=== PATIENT | male | born 1965 | race Hispanic/Latino ===

== ENCOUNTER 2017-07-22 18:24 | Emergency (ER) | payer SELFPAY | END 2017-07-22 18:40 | disposition home or self-care (01) | LOC: EDH 18:24 | DX: M79.671 Pain in right foot (principal); I10 Essential (primary) hypertension ==

== ENCOUNTER 2017-09-21 19:16 | Emergency (ER) | payer SELFPAY ==
[2017-09-21 19:56] LABS: APPEARANCE,URINE Clear (CLEAR); BILIRUBIN,URINE Negative (NEGATIVE); COLOR,URINE Yellow (YELLOW); GLUCOSE, URINE (UA) Negative (NEGATIVE); KETONES,URINE Negative (NEGATIVE); LEUKOCYTE ESTERASE ,URINE Moderate (NEGATIVE); NITRATE,URINE Negative (NEGATIVE); OCCULT BLOOD,URINE Negative (NEGATIVE); PROTEIN,URINE Negative (NEGATIVE)
[2017-09-21 19:59] LABS: BASOPHILS % (AUTO) 0.6 % (0.0-5.0); EOSINOPHILS % (AUTO) 1.8 % (0.0-8.0); HEMATOCRIT 52.8 % (42-54); LYMPHOCYTES % (AUTO) 23.6 % (21.0-51.0); MEAN CORPUSCULAR HEMOGLOBIN 31.8 pg (27.0-33.0); MEAN CORPUSCULAR HGB CONC 35.3 g/dL (32.0-36.0); MEAN CORPUSCULAR VOLUME 90.1 fL (79-99); MONOCYTES % (AUTO) 7.5 % (3.0-13.0); NEUTROPHILS % (AUTO) 66.5 % (40.0-77.0); PLATELET COUNT (AUTO) 163 K/uL (130-400); RED BLOOD CELL COUNT(AUTO) 5.86 MIL/uL (4.50-6.20); RED CELL DISTRIBUTION WIDTH 13.8 % (11.0-15.5)
[2017-09-21 20:03] LABS: AMPHET/METH SCREEN,URINE NEGATIVE (NEGATIVE); BARBITURATE SCREEN, URINE NEGATIVE (NEGATIVE); BENZODIAZEPINES SCREEN,URINE NEGATIVE (NEGATIVE); CANNABINOID SCREEN,URINE NEGATIVE (NEGATIVE); COCAINE SCREEN,URINE NEGATIVE (NEGATIVE); OPIATE SCREEN,URINE NEGATIVE (NEGATIVE); PHENCYCLIDINE SCREEN,URINE NEGATIVE (NEGATIVE)
[2017-09-21 20:07] LABS: CARBON DIOXIDE 31 mmol/L (21-32); CHLORIDE 100 mmol/L (101-111); CREATININE 0.8 mg/dL (0.5-1.5); GLOMERULAR FILTR. RATE CALC 108 mL/min (>60); GLUCOSE,RANDOM 101 mg/dL (70-105); POTASSIUM 3.7 mmol/L (3.5-5.1); SODIUM SERUM 138 mmol/L (136-145); UREA NITROGEN, BLOOD 7 mg/dL (7-18)
[2017-09-21 20:11] LABS: SALICYLATE 7.7 mg/dL (2.8-20.0)
[2017-09-21 20:12] LABS: ACETAMINOPHEN < 1 mcg/mL (10-29); ALCOHOL, BLOOD < 3 mg/dL (0-10)
[2017-09-21 20:20] LABS: BACTERIA,URINE Rare /HPF (None Seen); RBC,URINE 0-1 /HPF (0-1); SQUAMOUS EPITHELIAL CELL,UR Rare /LPF (0-2)
== END 2017-09-21 23:31 | disposition home or self-care (01) ==
LOC: EDH 19:16
DX: F32.9 Major depressive disorder, single episode, unspecified (principal); F41.9 Anxiety disorder, unspecified; I10 Essential (primary) hypertension; F20.9 Schizophrenia, unspecified
CPT/HCPCS: 36415; 80048; 80305; 81001; 85025; 99284; G0480 ×2; G0481

== ENCOUNTER 2018-06-25 09:31 | Inpatient (IN) | payer OTHER ==
[~2018-06-25] VITALS: Ht 177.8 cm; Wt 142.2 kg
[2018-06-25] MEDS ORDERED: ONDANSETRON HCL 4 MG/2 ML VIAL ONE ×2 (09:47→13:16)
[2018-06-25] MEDS ORDERED: SODIUM CHLORIDE 0.9% 500ML 500 ML IV ONE (09:48)
[2018-06-25] MEDS ORDERED: MORPHINE SULFATE 4 MG/1ML SYG ONE (09:48)
[2018-06-25] MEDS ORDERED: MORPHINE SULFATE 2 MG/ML 1ML SYG ONE (09:48)
[2018-06-25 09:55] LABS: BASOPHILS % (AUTO) 0.4 % (0.0-5.0); HEMATOCRIT 51.1 % (42-54); LYMPHOCYTES % (AUTO) 2.5 % (21.0-51.0); MEAN CORPUSCULAR HEMOGLOBIN 31.5 pg (27.0-33.0); MEAN CORPUSCULAR HGB CONC 33.9 g/dL (32.0-36.0); MEAN CORPUSCULAR VOLUME 92.9 fL (79-99); NEUTROPHILS % (AUTO) 92.1 % (40.0-77.0); NUCLEATED RED BLOOD CELLS 0.2 % (0.0-0.19); PLATELET COUNT (AUTO) 146 K/uL (130-400); WHITE BLOOD COUNT (AUTO) 23.1 K/uL (4.8-10.8)
[2018-06-25 10:09] LABS: CREATININE 1.3 mg/dL (0.5-1.5); POTASSIUM 3.8 mmol/L (3.5-5.1)
[2018-06-25 10:13] LABS: ALBUMIN 3.3 g/dL (3.5-5.0); BILIRUBIN,TOTAL 0.9 mg/dL (0.2-1.0); TOTAL PROTEIN, SERUM 8.1 g/dL (6.0-8.3)
[2018-06-25] MEDS ORDERED: IOHEXOL-350 75 ML VIAL IV ONE (10:34)
[2018-06-25] MEDS ORDERED: METRONIDAZOLE 500MG/100ML BAG 100 ML ONE (11:38)
[2018-06-25] MEDS ORDERED: ZOSYN 3.375GM+NS 50ML 50 ML IV ONE (12:22)
[2018-06-25] MEDS ORDERED: SODIUM CHLORIDE 0.9% 100 ML IV ONE (12:22)
[2018-06-25] MEDS ORDERED: VANCOMYCIN 1GM+NS 250ML 0 ML IV ONE (13:06)
[2018-06-25] MEDS ORDERED: VANCOMYCIN 1GM+NS 250ML 250 ML IV SCH (13:15)
[2018-06-25] MEDS ORDERED: ZOLPIDEM TARTRATE 5 MG TAB PO PRN (13:15)
[2018-06-25] MEDS ORDERED: MORPHINE SULFATE 2 MG/ML 1ML SYG IV PRN (13:15)
[2018-06-25] MEDS ORDERED: VANCOMYCIN PROTOCOL PER PHARMACY IV PRN (13:15)
[2018-06-25] MEDS ORDERED: MIDAZOLAM HCL 1 MG/ML 2ML VIAL ONE (13:16)
[2018-06-25] MEDS ORDERED: SUCCINYLCHOLINE 200MG/10ML SYR ONE (13:16)
[2018-06-25] MEDS ORDERED: ROCURONIUM 10MG/1ML SYR 10 MG/ML ML ONE (13:16)
[2018-06-25] MEDS ORDERED: GLYCOPYRROLATE 1 MG/5 ML SYRINGE ONE (13:16)
[2018-06-25] MEDS ORDERED: LIDOCAINE PF 2% 5ML ABBOJECT ONE (13:16)
[2018-06-25] MEDS ORDERED: PROPOFOL 10 MG/ML 20ML VIAL IV ONE (13:16)
[2018-06-25] MEDS ORDERED: NEOSTIGMINE 5MG/5ML SYR IV ONE (13:16)
[2018-06-25] MEDS ORDERED: DEXAMETHASONE SOD PHOSPHATE 10MG/ML 1ML VIAL ONE (13:16)
[2018-06-25] MEDS ORDERED: FENTANYL CITRATE PF 50 MCG/1 ML 2ML VIAL ONE (13:17)
[2018-06-25 14:13] LABS: HEMOGLOBIN A1C 5.2 % (4.0-6.0)
[2018-06-25 14:17] LABS: CREATINE KINASE, TOTAL 135 U/L (21-232); MYOGLOBIN 251 ng/mL (10-92); PHOSPHORUS 4.2 mg/dL (2.5-4.9); THYROID STIMULATING HORMONE 1.41 uIU/mL (0.36-3.74); TROPONIN I < 0.04 ng/mL (0.00-0.06)
[2018-06-25] MEDS: SODIUM CHLORIDE 0.9% 1000ML 1,000 ML IV SCH ×2 (18:00→19:49)
[2018-06-25 18:10] VITALS: BP 140/73
[2018-06-25] MEDS: HEPARIN SODIUM 5000UNIT/ML 1ML VIAL SQ SCH (18:55)
[2018-06-25 19:00] VITALS: BP 130/81
[2018-06-25] MEDS ORDERED: MAGNESIUM 2GM PREMIX 50ML 50 ML IV SCH (19:45)
[2018-06-25 20:00] VITALS: BP 140/80
[2018-06-25] MEDS ORDERED: COMPOUND IV REFRIGERATED 1 EACH IVSOLN MISC PRN (20:15)
[2018-06-25 20:29] LABS: APPEARANCE,URINE Clear (CLEAR); BILIRUBIN,URINE Small (NEGATIVE); COLOR,URINE Dark Yellow (YELLOW); GLUCOSE, URINE (UA) Negative (NEGATIVE); KETONES,URINE 15 mg/dL (NEGATIVE); LEUKOCYTE ESTERASE ,URINE Trace (NEGATIVE); NITRATE,URINE Negative (NEGATIVE); OCCULT BLOOD,URINE Trace (NEGATIVE); PROTEIN,URINE POS 2+ (NEGATIVE)
[2018-06-25] MEDS ORDERED: VANCOMYCIN 1GM+NS 250ML 250 ML IV ONE (20:36)
[2018-06-25 20:44] LABS: RBC,URINE 0-1 /HPF (0-1)
[2018-06-25 20:45] LABS: BACTERIA,URINE Few /HPF (None Seen); SQUAMOUS EPITHELIAL CELL,UR Rare /HPF (0-2)
[2018-06-25 21:00] VITALS: BP 137/79
[2018-06-25] MEDS ORDERED: PANTOPRAZOLE SODIUM 40 MG TABLET.DR PO SCH (21:00)
[2018-06-25] MEDS: VANCOMYCIN 1.5 GM in SODIUM CHLORIDE 0.9% 250 ML IV SCH (21:29)
[2018-06-25 22:00] VITALS: BP 110/52
[2018-06-25] MEDS: MORPHINE SULFATE 4 MG/1ML SYG IV PRN (22:35)
[2018-06-25] MEDS: ZOSYN 3.375GM+NS 50ML 50 ML IV SCH (22:37)
[2018-06-25 23:00] VITALS: BP 124/73
[2018-06-26] VITALS (24 sets, daily range): BP systolic 102–155; BP diastolic 45–111
[2018-06-26] MEDS: MORPHINE SULFATE 4 MG/1ML SYG IV PRN (02:12)
[2018-06-26] MEDS: SODIUM CHLORIDE 0.9% 1000ML 1,000 ML IV SCH ×4 (02:12→19:49)
[2018-06-26] MEDS: HEPARIN SODIUM 5000UNIT/ML 1ML VIAL SQ SCH ×2 (03:28→19:59)
[2018-06-26 03:50] LABS: HEMATOCRIT 41.7 % (42-54); MEAN CORPUSCULAR HEMOGLOBIN 32.4 pg (27.0-33.0); MEAN CORPUSCULAR VOLUME 92.7 fL (79-99); PLATELET COUNT (AUTO) 131 K/uL (130-400); RED BLOOD CELL COUNT(AUTO) 4.49 MIL/uL (4.50-6.20); RED CELL DISTRIBUTION WIDTH 13.9 % (11.0-15.5); WHITE BLOOD COUNT (AUTO) 15.3 K/uL (4.8-10.8)
[2018-06-26 04:02] LABS: INR 0.98 (0.85-1.15); PARTIAL THROMBOPLASTIN TIME 37.3 SEC (26.3-35.5); PROTHROMBIN TIME 10.3 SEC (9.6-11.6)
[2018-06-26 05:55] LABS: ALANINE AMINOTRANSFERASE 51 U/L (12-78); ALBUMIN 2.4 g/dL (3.5-5.0); ASPARTATE AMINOTRANSFERASE 29 U/L (10-37); CARBON DIOXIDE 24 mmol/L (21-32); CHLORIDE 105 mmol/L (101-111); CREATINE KINASE, TOTAL 219 U/L (21-232); CREATININE 0.8 mg/dL (0.5-1.5); GLOMERULAR FILTR. RATE CALC 108 mL/min (>60); GLUCOSE,RANDOM 101 mg/dL (70-105); MYOGLOBIN 174 ng/mL (10-92); POTASSIUM 4.1 mmol/L (3.5-5.1); SODIUM SERUM 140 mmol/L (136-145); TOTAL PROTEIN, SERUM 6.4 g/dL (6.0-8.3); TROPONIN I < 0.04 ng/mL (0.00-0.06); UREA NITROGEN, BLOOD 12 mg/dL (7-18)
[2018-06-26] MEDS: ZOSYN 3.375GM+NS 50ML 50 ML IV SCH ×4 (06:00→20:04)
[2018-06-26] MEDS: VANCOMYCIN 1.5 GM in SODIUM CHLORIDE 0.9% 250 ML IV SCH ×2 (09:22→20:00)
[2018-06-26] MEDS: FAMOTIDINE/PF 20 MG/2 ML VIAL IV SCH ×2 (09:59→20:00)
[2018-06-26 14:15] LABS: APPEARANCE,URINE Cloudy (CLEAR); BILIRUBIN,URINE Moderate (NEGATIVE); COLOR,URINE Dark Yellow (YELLOW); GLUCOSE, URINE (UA) Negative (NEGATIVE); KETONES,URINE >=80 mg/dL (NEGATIVE); LEUKOCYTE ESTERASE ,URINE Negative (NEGATIVE); NITRATE,URINE Negative (NEGATIVE); OCCULT BLOOD,URINE Negative (NEGATIVE); PH,URINE 5.5 (5.0-8.0); PROTEIN,URINE POS 2+ (NEGATIVE)
[2018-06-26 14:31] LABS: BACTERIA,URINE Moderate /HPF (None Seen); MUCUS,URINE Few LPF (None Seen); RBC,URINE None Seen /HPF (0-1); SQUAMOUS EPITHELIAL CELL,UR 0-2 /HPF (0-2); WBC,URINE None Seen /HPF (0-1)
[2018-06-26 14:32] LABS: AMORPHOUS SEDIMENT,UR Moderate /LPF (None Seen)
[2018-06-27] VITALS (15 sets, daily range): BP systolic 113–153; BP diastolic 58–89
[2018-06-27 03:57] LABS: HEMATOCRIT 41.6 % (42-54); MEAN CORPUSCULAR HEMOGLOBIN 31.3 pg (27.0-33.0); MEAN CORPUSCULAR HGB CONC 33.7 g/dL (32.0-36.0); MEAN CORPUSCULAR VOLUME 92.7 fL (79-99); NUCLEATED RED BLOOD CELLS 0.2 % (0.0-0.19); PLATELET COUNT (AUTO) 141 K/uL (130-400); RED BLOOD CELL COUNT(AUTO) 4.48 MIL/uL (4.50-6.20); RED CELL DISTRIBUTION WIDTH 13.9 % (11.0-15.5); WHITE BLOOD COUNT (AUTO) 11.5 K/uL (4.8-10.8)
[2018-06-27 04:16] LABS: CREATININE 0.8 mg/dL (0.5-1.5)
[2018-06-27] MEDS: SODIUM CHLORIDE 0.9% 1000ML 1,000 ML IV SCH ×3 (04:19→15:50)
[2018-06-27] MEDS: HEPARIN SODIUM 5000UNIT/ML 1ML VIAL SQ SCH ×2 (04:56→17:25)
[2018-06-27] MEDS: ZOSYN 3.375GM+NS 50ML 50 ML IV SCH ×2 (05:00→20:13)
[2018-06-27] MEDS ORDERED: ZOSYN 3.375GM+NS 50ML 50 ML IV SCH ×2 (05:00)
[2018-06-27] MEDS: FAMOTIDINE/PF 20 MG/2 ML VIAL IV SCH ×2 (08:24→20:13)
[2018-06-27] MEDS: VANCOMYCIN 1.75 GM in SODIUM CHLORIDE 0.9% 250 ML IV SCH ×2 (10:47→21:44)
[2018-06-27] MEDS: MORPHINE SULFATE 4 MG/1ML SYG IV PRN (20:33)
[2018-06-28] MEDS: SODIUM CHLORIDE 0.9% 1000ML 1,000 ML IV SCH ×2 (02:44→08:48)
[2018-06-28] MEDS: MORPHINE SULFATE 4 MG/1ML SYG IV PRN ×2 (03:09→06:39)
[2018-06-28 03:57] VITALS: BP 134/60
[2018-06-28 04:04] LABS: HEMATOCRIT 40.9 % (42-54); MEAN CORPUSCULAR HEMOGLOBIN 32.9 pg (27.0-33.0); MEAN CORPUSCULAR HGB CONC 35.4 g/dL (32.0-36.0); MEAN CORPUSCULAR VOLUME 92.9 fL (79-99); PLATELET COUNT (AUTO) 167 K/uL (130-400); RED CELL DISTRIBUTION WIDTH 13.3 % (11.0-15.5); WHITE BLOOD COUNT (AUTO) 10.8 K/uL (4.8-10.8)
[2018-06-28 04:13] LABS: CREATININE 0.7 mg/dL (0.5-1.5); POTASSIUM 3.6 mmol/L (3.5-5.1)
[2018-06-28 04:24] LABS: BAND NEUTROPHILS % (MANUAL) 3 % (0-2); EOSINOPHILS % (MANUAL) 4 % (1-6); LYMPHOCYTES % (MANUAL) 8 % (22-44); MAN.DIFF COMMENT-IMPRESSION MANUAL DIFFERENTIAL; MONOCYTES % (MANUAL) 4 % (2-9); SEGMENTED NEUTROPHILS % 81 % (40-70)
[2018-06-28 04:25] LABS: PLATELET MORPHOLOGY COMMENT ADEQUATE
[2018-06-28] MEDS: ZOSYN 3.375GM+NS 50ML 50 ML IV SCH ×3 (04:49→21:16)
[2018-06-28] MEDS: HEPARIN SODIUM 5000UNIT/ML 1ML VIAL SQ SCH ×2 (04:50→18:15)
[2018-06-28 07:00] VITALS: BP 120/87
[2018-06-28] MEDS: FAMOTIDINE/PF 20 MG/2 ML VIAL IV SCH ×2 (08:49→21:16)
[2018-06-28] MEDS: VANCOMYCIN 1.75 GM in SODIUM CHLORIDE 0.9% 250 ML IV SCH ×2 (08:49→21:16)
[2018-06-28] MEDS: POTASSIUM CHLORIDE 10 MEQ in SODIUM CHLORIDE 0.9% 1000ML 1,000 ML IV SCH ×2 (09:56→18:16)
[2018-06-28] MEDS: NICOTINE 21 MG/ 24 HR PATCH TD SCH (09:59)
[2018-06-28] MEDS ORDERED: DIATR MEGLU/DIATRIZOATE SODIUM 30 ML BOTTLE ONE (10:58)
[2018-06-28 11:00] VITALS: BP 142/72
[2018-06-28 16:00] VITALS: BP 121/74
[2018-06-28 19:32] VITALS: BP 137/74
[2018-06-28] MEDS: IPRATROPIUM/ALBUTEROL SULFATE 3 ML SOLUTION IH SCH (19:39)
[2018-06-29] MEDS: POTASSIUM CHLORIDE 10 MEQ in SODIUM CHLORIDE 0.9% 1000ML 1,000 ML IV SCH ×3 (02:08→16:59)
[2018-06-29 03:34] VITALS: BP 127/66
[2018-06-29 03:43] LABS: BASOPHILS % (AUTO) 0.6 % (0.0-5.0); EOSINOPHILS % (AUTO) 2.3 % (0.0-8.0); HEMATOCRIT 38.6 % (42-54); LYMPHOCYTES % (AUTO) 13.5 % (21.0-51.0); MEAN CORPUSCULAR HEMOGLOBIN 31.8 pg (27.0-33.0); MEAN CORPUSCULAR HGB CONC 34.5 g/dL (32.0-36.0); MONOCYTES % (AUTO) 10.3 % (3.0-13.0); NEUTROPHILS % (AUTO) 73.3 % (40.0-77.0); NUCLEATED RED BLOOD CELLS 0.1 % (0.0-0.19); PLATELET COUNT (AUTO) 156 K/uL (130-400); RED BLOOD CELL COUNT(AUTO) 4.19 MIL/uL (4.50-6.20); RED CELL DISTRIBUTION WIDTH 13.9 % (11.0-15.5); WHITE BLOOD COUNT (AUTO) 9.9 K/uL (4.8-10.8)
[2018-06-29 04:03] LABS: ALBUMIN 2.3 g/dL (3.5-5.0); BILIRUBIN,DIRECT 0.1 mg/dL (0.0-0.3); BILIRUBIN,TOTAL 0.6 mg/dL (0.2-1.0); CREATININE 0.8 mg/dL (0.5-1.5); POTASSIUM 3.3 mmol/L (3.5-5.1); TOTAL PROTEIN, SERUM 6.2 g/dL (6.0-8.3)
[2018-06-29] MEDS: ZOSYN 3.375GM+NS 50ML 50 ML IV SCH ×3 (05:09→21:05)
[2018-06-29] MEDS: HEPARIN SODIUM 5000UNIT/ML 1ML VIAL SQ SCH ×2 (06:00→17:00)
[2018-06-29] MEDS: IPRATROPIUM/ALBUTEROL SULFATE 3 ML SOLUTION IH SCH ×2 (06:39→18:57)
[2018-06-29 07:00] VITALS: BP 120/59
[2018-06-29] MEDS: FAMOTIDINE/PF 20 MG/2 ML VIAL IV SCH ×2 (09:45→21:05)
[2018-06-29] MEDS: NICOTINE 21 MG/ 24 HR PATCH TD SCH (09:54)
[2018-06-29] MEDS: VANCOMYCIN 1.75 GM in SODIUM CHLORIDE 0.9% 250 ML IV SCH (09:57)
[2018-06-29 11:57] VITALS: BP 125/63
[2018-06-29 16:00] VITALS: BP 120/70
[2018-06-29 20:00] VITALS: BP 139/77
[2018-06-30] VITALS: BP 128/76
[2018-06-30] MEDS: VANCOMYCIN 1.75 GM in SODIUM CHLORIDE 0.9% 250 ML IV SCH ×3 (00:06→22:57)
[2018-06-30] MEDS: POTASSIUM CHLORIDE 10 MEQ in SODIUM CHLORIDE 0.9% 1000ML 1,000 ML IV SCH ×4 (00:06→22:57)
[2018-06-30 04:00] VITALS: BP 131/59
[2018-06-30 04:56] LABS: HEMATOCRIT 38.4 % (42-54); MEAN CORPUSCULAR HEMOGLOBIN 31.9 pg (27.0-33.0); MEAN CORPUSCULAR HGB CONC 34.6 g/dL (32.0-36.0); MEAN CORPUSCULAR VOLUME 92.2 fL (79-99); PLATELET COUNT (AUTO) 200 K/uL (130-400); RED BLOOD CELL COUNT(AUTO) 4.17 MIL/uL (4.50-6.20); RED CELL DISTRIBUTION WIDTH 13.6 % (11.0-15.5); WHITE BLOOD COUNT (AUTO) 10.6 K/uL (4.8-10.8)
[2018-06-30] MEDS: ZOSYN 3.375GM+NS 50ML 50 ML IV SCH ×3 (05:04→20:20)
[2018-06-30 05:08] LABS: CREATININE 0.8 mg/dL (0.5-1.5); POTASSIUM 3.2 mmol/L (3.5-5.1)
[2018-06-30] MEDS ORDERED: DULOXETINE HCL 30 MG CAP PO PRN (05:45)
[2018-06-30] MEDS: HEPARIN SODIUM 5000UNIT/ML 1ML VIAL SQ SCH ×2 (06:13→17:30)
[2018-06-30] MEDS: IPRATROPIUM/ALBUTEROL SULFATE 3 ML SOLUTION IH SCH ×2 (06:45→19:33)
[2018-06-30 07:47] VITALS: BP 134/74
[2018-06-30] MEDS: NICOTINE 21 MG/ 24 HR PATCH TD SCH (10:10)
[2018-06-30] MEDS: FAMOTIDINE/PF 20 MG/2 ML VIAL IV SCH ×2 (10:10→20:20)
[2018-06-30 10:56] VITALS: BP 124/79
[2018-06-30] MEDS ORDERED: ACETAMINOPHEN EXTRA STRENGTH 500 MG TABLET PO PRN (14:15)
[2018-06-30 16:17] VITALS: BP 116/79
[2018-06-30 19:59] VITALS: BP 131/83
[2018-06-30] MEDS: TERBINAFINE HCL 15 GM TUBE TP SCH (20:21)
[2018-07-01] VITALS (7 sets, daily range): BP systolic 121–149; BP diastolic 61–80
[2018-07-01] MEDS: ZOSYN 3.375GM+NS 50ML 50 ML IV SCH ×2 (04:06→11:47)
[2018-07-01 04:30] LABS: HEMATOCRIT 36.3 % (42-54); MEAN CORPUSCULAR HEMOGLOBIN 31.1 pg (27.0-33.0); MEAN CORPUSCULAR HGB CONC 33.8 g/dL (32.0-36.0); MEAN CORPUSCULAR VOLUME 91.9 fL (79-99); NUCLEATED RED BLOOD CELLS 0.1 % (0.0-0.19); PLATELET COUNT (AUTO) 185 K/uL (130-400); RED BLOOD CELL COUNT(AUTO) 3.95 MIL/uL (4.50-6.20); RED CELL DISTRIBUTION WIDTH 13.6 % (11.0-15.5); WHITE BLOOD COUNT (AUTO) 11.8 K/uL (4.8-10.8)
[2018-07-01 04:50] LABS: CREATININE 0.8 mg/dL (0.5-1.5); CRP QUANTITATIVE 113.5 mg/L (0.00-9.0); PHOSPHORUS 4.3 mg/dL (2.5-4.9); POTASSIUM 3.3 mmol/L (3.5-5.1)
[2018-07-01] MEDS: HEPARIN SODIUM 5000UNIT/ML 1ML VIAL SQ SCH ×2 (05:11→16:15)
[2018-07-01] MEDS: IPRATROPIUM/ALBUTEROL SULFATE 3 ML SOLUTION IH SCH ×2 (09:11→19:02)
[2018-07-01] MEDS: NICOTINE 21 MG/ 24 HR PATCH TD SCH (09:21)
[2018-07-01] MEDS: FAMOTIDINE/PF 20 MG/2 ML VIAL IV SCH ×2 (09:21→20:18)
[2018-07-01] MEDS: POTASSIUM CHLORIDE 10 MEQ in SODIUM CHLORIDE 0.9% 1000ML 1,000 ML IV SCH ×2 (11:46→16:16)
[2018-07-01] MEDS: TERBINAFINE HCL 15 GM TUBE TP SCH ×2 (11:47→20:19)
[2018-07-01] MEDS: VANCOMYCIN 1.75 GM in SODIUM CHLORIDE 0.9% 250 ML IV SCH (13:32)
[2018-07-01] MEDS ORDERED: POTASSIUM CHLORIDE 20 MEQ ERTAB PO ONE ×2 (20:00→22:00)
[2018-07-01] MEDS: METRONIDAZOLE 500 MG TABLET PO SCH (20:16)
[2018-07-02] MEDS: POTASSIUM CHLORIDE 10 MEQ in SODIUM CHLORIDE 0.9% 1000ML 1,000 ML IV SCH ×3 (02:12→17:41)
[2018-07-02 04:35] LABS: HEMATOCRIT 33.9 % (42-54); MEAN CORPUSCULAR HEMOGLOBIN 32.2 pg (27.0-33.0); MEAN CORPUSCULAR HGB CONC 35.1 g/dL (32.0-36.0); MEAN CORPUSCULAR VOLUME 91.6 fL (79-99); PLATELET COUNT (AUTO) 204 K/uL (130-400); RED CELL DISTRIBUTION WIDTH 13.9 % (11.0-15.5); WHITE BLOOD COUNT (AUTO) 12.3 K/uL (4.8-10.8)
[2018-07-02] MEDS: HEPARIN SODIUM 5000UNIT/ML 1ML VIAL SQ SCH ×2 (04:47→20:59)
[2018-07-02] MEDS: METRONIDAZOLE 500 MG TABLET PO SCH ×3 (04:47→20:55)
[2018-07-02 04:55] LABS: CREATININE 0.8 mg/dL (0.5-1.5); CRP QUANTITATIVE 153.4 mg/L (0.00-9.0)
[2018-07-02] MEDS: IPRATROPIUM/ALBUTEROL SULFATE 3 ML SOLUTION IH SCH ×2 (06:26→18:24)
[2018-07-02 07:52] VITALS: BP 143/76
[2018-07-02] MEDS: METOPROLOL TARTRATE 25 MG TAB PO SCH ×2 (08:57→20:55)
[2018-07-02] MEDS: FAMOTIDINE/PF 20 MG/2 ML VIAL IV SCH ×2 (08:59→20:55)
[2018-07-02] MEDS: NICOTINE 21 MG/ 24 HR PATCH TD SCH (09:01)
[2018-07-02] MEDS: TERBINAFINE HCL 15 GM TUBE TP SCH ×2 (09:01→21:00)
[2018-07-02 11:21] VITALS: BP 131/74
[2018-07-02 15:38] VITALS: BP 124/83
[2018-07-02 19:36] VITALS: BP 139/78
[2018-07-02] MEDS ORDERED: LEVOFLOXACIN 500 MG TABLET PO SCH (21:00)
[2018-07-02 23:56] VITALS: BP 130/77
[2018-07-03 03:48] VITALS: BP 137/82
[2018-07-03 04:15] LABS: BASOPHILS % (AUTO) 0.5 % (0.0-5.0); EOSINOPHILS % (AUTO) 0.7 % (0.0-8.0); HEMATOCRIT 35.8 % (42-54); LYMPHOCYTES % (AUTO) 8.2 % (21.0-51.0); MEAN CORPUSCULAR HEMOGLOBIN 31.2 pg (27.0-33.0); MEAN CORPUSCULAR HGB CONC 33.9 g/dL (32.0-36.0); MEAN CORPUSCULAR VOLUME 92.2 fL (79-99); MONOCYTES % (AUTO) 9.5 % (3.0-13.0); NEUTROPHILS % (AUTO) 81.1 % (40.0-77.0); PLATELET COUNT (AUTO) 172 K/uL (130-400); RED BLOOD CELL COUNT(AUTO) 3.88 MIL/uL (4.50-6.20); RED CELL DISTRIBUTION WIDTH 13.7 % (11.0-15.5); WHITE BLOOD COUNT (AUTO) 13.7 K/uL (4.8-10.8)
[2018-07-03 04:25] LABS: CREATININE 0.9 mg/dL (0.5-1.5); POTASSIUM 3.8 mmol/L (3.5-5.1)
[2018-07-03] MEDS: METRONIDAZOLE 500 MG TABLET PO SCH ×2 (05:17→11:50)
[2018-07-03] MEDS: POTASSIUM CHLORIDE 10 MEQ in SODIUM CHLORIDE 0.9% 1000ML 1,000 ML IV SCH ×2 (05:20→07:34)
[2018-07-03] MEDS: IPRATROPIUM/ALBUTEROL SULFATE 3 ML SOLUTION IH SCH ×2 (06:16→18:54)
[2018-07-03] MEDS: METOPROLOL TARTRATE 25 MG TAB PO SCH ×2 (07:32→19:40)
[2018-07-03] MEDS: FAMOTIDINE/PF 20 MG/2 ML VIAL IV SCH ×2 (07:32→19:40)
[2018-07-03] MEDS: HEPARIN SODIUM 5000UNIT/ML 1ML VIAL SQ SCH ×2 (07:33→19:41)
[2018-07-03] MEDS: TERBINAFINE HCL 15 GM TUBE TP SCH ×2 (07:34→21:23)
[2018-07-03 07:35] VITALS: BP 138/78
[2018-07-03] MEDS: NICOTINE 21 MG/ 24 HR PATCH TD SCH (09:39)
[2018-07-03 11:04] VITALS: BP 129/77
[2018-07-03] MEDS ORDERED: VANCOMYCIN PROTOCOL PER PHARMACY IV SCH (15:00)
[2018-07-03] MEDS: ZOSYN 3.375GM+NS 50ML 50 ML IV SCH (15:13)
[2018-07-03] MEDS: VANCOMYCIN 1.5 GM in N.S. 250 ML IV SCH ×2 (16:12→23:02)
[2018-07-03 16:13] VITALS: BP 146/71
[2018-07-03 16:30] VITALS: BP 166/83
[2018-07-03 20:00] VITALS: BP 126/72
[2018-07-04] VITALS: BP 123/76
[2018-07-04] MEDS: ZOSYN 3.375GM+NS 50ML 50 ML IV SCH ×4 (00:29→22:57)
[2018-07-04 05:41] LABS: MEAN CORPUSCULAR HEMOGLOBIN 32.6 pg (27.0-33.0); MEAN CORPUSCULAR HGB CONC 35.3 g/dL (32.0-36.0); MEAN CORPUSCULAR VOLUME 92.3 fL (79-99); PLATELET COUNT (AUTO) 209 K/uL (130-400); RED BLOOD CELL COUNT(AUTO) 3.79 MIL/uL (4.50-6.20); RED CELL DISTRIBUTION WIDTH 13.8 % (11.0-15.5)
[2018-07-04] MEDS: IPRATROPIUM/ALBUTEROL SULFATE 3 ML SOLUTION IH SCH ×2 (06:00→18:36)
[2018-07-04 07:17] LABS: CREATININE 0.9 mg/dL (0.5-1.5); MAGNESIUM 1.9 mg/dL (1.80-2.40); PHOSPHORUS 4.8 mg/dL (2.5-4.9); POTASSIUM 3.8 mmol/L (3.5-5.1)
[2018-07-04 08:00] VITALS: BP 147/74
[2018-07-04] MEDS: FAMOTIDINE/PF 20 MG/2 ML VIAL IV SCH ×2 (08:42→22:58)
[2018-07-04] MEDS: VANCOMYCIN 1.5 GM in N.S. 250 ML IV SCH (08:42)
[2018-07-04] MEDS: METOPROLOL TARTRATE 25 MG TAB PO SCH ×3 (08:44→22:56)
[2018-07-04] MEDS: NICOTINE 21 MG/ 24 HR PATCH TD SCH (08:47)
[2018-07-04] MEDS: HEPARIN SODIUM 5000UNIT/ML 1ML VIAL SQ SCH ×2 (09:03→22:57)
[2018-07-04] MEDS: TERBINAFINE HCL 15 GM TUBE TP SCH ×2 (09:04→22:57)
[2018-07-04 09:09] LABS: CRP QUANTITATIVE 183.2 mg/L (0.00-9.0)
[2018-07-04] MEDS ORDERED: SODIUM CHLORIDE 0.9% 1000ML 1,000 ML IV SCH (10:00)
[2018-07-04] MEDS ORDERED: METOPROLOL TARTRATE 1 MG/ML 5ML VIAL IV PRN (10:00)
[2018-07-04 16:00] VITALS: BP 154/84
[2018-07-04] MEDS ORDERED: MORPHINE SULFATE 2 MG/ML 1ML SYG IM PRN (18:15)
[2018-07-04 20:00] VITALS: BP 125/69
[2018-07-05] VITALS: BP 127/74
[2018-07-05] MEDS: IPRATROPIUM/ALBUTEROL SULFATE 3 ML SOLUTION IH SCH (06:00)
[2018-07-05] MEDS: ZOSYN 3.375GM+NS 50ML 50 ML IV SCH ×3 (06:41→22:42)
[2018-07-05 08:23] VITALS: BP 130/68
[2018-07-05] MEDS: FAMOTIDINE/PF 20 MG/2 ML VIAL IV SCH ×2 (08:52→21:00)
[2018-07-05] MEDS: NICOTINE 21 MG/ 24 HR PATCH TD SCH (08:52)
[2018-07-05] MEDS: METOPROLOL TARTRATE 25 MG TAB PO SCH ×2 (08:52→22:41)
[2018-07-05] MEDS: HEPARIN SODIUM 5000UNIT/ML 1ML VIAL SQ SCH ×2 (09:01→21:00)
[2018-07-05] MEDS: TERBINAFINE HCL 15 GM TUBE TP SCH ×2 (09:03→21:00)
[2018-07-05 11:42] VITALS: BP 113/63
[2018-07-05] MEDS: VANCOMYCIN 1.5 GM in N.S. 250 ML IV SCH ×2 (15:04→22:42)
[2018-07-05 15:55] LABS: BASOPHILS % (AUTO) 0.4 % (0.0-5.0); EOSINOPHILS % (AUTO) 1.9 % (0.0-8.0); HEMATOCRIT 39.3 % (42-54); LYMPHOCYTES % (AUTO) 14.4 % (21.0-51.0); MEAN CORPUSCULAR HEMOGLOBIN 30.8 pg (27.0-33.0); MEAN CORPUSCULAR HGB CONC 33.3 g/dL (32.0-36.0); MEAN CORPUSCULAR VOLUME 92.5 fL (79-99); MONOCYTES % (AUTO) 13.9 % (3.0-13.0); NEUTROPHILS % (AUTO) 69.4 % (40.0-77.0); NUCLEATED RED BLOOD CELLS 0.2 % (0.0-0.19); PLATELET COUNT (AUTO) 223 K/uL (130-400); RED BLOOD CELL COUNT(AUTO) 4.25 MIL/uL (4.50-6.20); RED CELL DISTRIBUTION WIDTH 13.7 % (11.0-15.5); WHITE BLOOD COUNT (AUTO) 9.2 K/uL (4.8-10.8)
[2018-07-05 16:18] LABS: ALBUMIN 2.3 g/dL (3.5-5.0); BILIRUBIN,TOTAL 0.5 mg/dL (0.2-1.0); POTASSIUM 3.6 mmol/L (3.5-5.1); TOTAL PROTEIN, SERUM 7.8 g/dL (6.0-8.3)
[2018-07-05 19:49] VITALS: BP 125/66
[2018-07-05 23:35] VITALS: BP 127/69
[2018-07-06 03:50] VITALS: BP 124/68
[2018-07-06 05:22] LABS: HEMATOCRIT 36.6 % (42-54); MEAN CORPUSCULAR HEMOGLOBIN 32.3 pg (27.0-33.0); MEAN CORPUSCULAR HGB CONC 34.7 g/dL (32.0-36.0); PLATELET COUNT (AUTO) 254 K/uL (130-400); RED BLOOD CELL COUNT(AUTO) 3.93 MIL/uL (4.50-6.20); RED CELL DISTRIBUTION WIDTH 13.7 % (11.0-15.5)
[2018-07-06 05:30] LABS: CREATININE 0.9 mg/dL (0.5-1.5); POTASSIUM 3.8 mmol/L (3.5-5.1)
[2018-07-06] MEDS: ZOSYN 3.375GM+NS 50ML 50 ML IV SCH ×2 (07:00→14:09)
[2018-07-06] MEDS: VANCOMYCIN 1.5 GM in N.S. 250 ML IV SCH ×2 (07:49→15:24)
[2018-07-06 08:43] VITALS: BP 125/77
[2018-07-06] MEDS: FAMOTIDINE/PF 20 MG/2 ML VIAL IV SCH (09:00)
[2018-07-06] MEDS: NICOTINE 21 MG/ 24 HR PATCH TD SCH (09:00)
[2018-07-06] MEDS: METOPROLOL TARTRATE 25 MG TAB PO SCH (09:00)
[2018-07-06] MEDS: HEPARIN SODIUM 5000UNIT/ML 1ML VIAL SQ SCH (09:00)
[2018-07-06] MEDS: TERBINAFINE HCL 15 GM TUBE TP SCH (09:00)
[2018-07-06] MEDS ORDERED: IBUP-2076 PO (10:40)
[2018-07-06] MEDS ORDERED: AMOX-429 PO (10:40)
[2018-07-06 12:20] VITALS: BP 126/73
[2018-07-06 16:50] VITALS: BP 145/77
== END 2018-07-06 18:15 | disposition home or self-care (01) | DRG 871 ==
LOC: EDH 09:31 → EDHIP 09:32 → 2BH 17:41 → 2CH 06-27 14:48 → 4CH 06-29 08:28 → 2AH 07-02 16:11 → 3CH 07-03 16:44
PROVIDERS: ADMIT Internal Medicine; ATTEND Internal Medicine
DX: A41.9 Sepsis, unspecified organism (principal); K63.1 Perforation of intestine (nontraumatic); Z68.42 Body mass index [BMI] 45.0-49.9, adult; F17.200 Nicotine dependence, unspecified, uncomplicated; R09.02 Hypoxemia; I10 Essential (primary) hypertension; B37.2 Candidiasis of skin and nail; E66.01 Morbid (severe) obesity due to excess calories; E78.5 Hyperlipidemia, unspecified; E87.6 Hypokalemia; F20.9 Schizophrenia, unspecified; F31.9 Bipolar disorder, unspecified; G47.33 Obstructive sleep apnea (adult) (pediatric); K43.9 Ventral hernia without obstruction or gangrene; K76.0 Fatty (change of) liver, not elsewhere classified; F41.9 Anxiety disorder, unspecified; R00.1 Bradycardia, unspecified; Z90.49 Acquired absence of other specified parts of digestive tract
CPT/HCPCS: 36415; 71045; 74018; 74176; 74177; 80048; 80053; 80061; 80076; 80202; 80339; 81001; 82140; 82550; 83036; 83605; 83690; 83735; 83874; 84100; 84443; 84484; 85025; 85027; 85610; 85730; 86140; 86850; 86900; 86901; 87040; 93005; 94640; 94660; 94664; 99291; A4344; J0330; J1100; J1644; J2001; J2250; J2270; J2405; J2543; J2704; J2710; J3010; J3370; J3475; J3480; J3490; J7030; J7040; Q9963; Q9967

== ENCOUNTER 2021-04-25 17:33 | Emergency (ER) | payer MEDICAID ==
[~2021-04-25] VITALS: Ht 175.3 cm; Wt 127.0 kg
[~2021-04-25 17:33] MED LIST: AMOX-429 PO; IBUP-2076 PO
[2021-04-25 18:18] LABS: APPEARANCE,URINE CLEAR (CLEAR); BILIRUBIN,URINE NEGATIVE (NEGATIVE); COLOR,URINE YELLOW (YELLOW); GLUCOSE, URINE (UA) NEGATIVE (NEGATIVE); KETONES,URINE NEGATIVE (NEGATIVE); LEUKOCYTE ESTERASE ,URINE NEGATIVE (NEGATIVE); NITRATE,URINE NEGATIVE (NEGATIVE); OCCULT BLOOD,URINE TRACE-INTACT (NEGATIVE); PROTEIN,URINE NEGATIVE (NEGATIVE); UROBILINOGEN,URINE 0.2 mg/dL (0.2-1.0)
[2021-04-25 18:23] LABS: BASOPHILS % (AUTO) 0.8 % (0.0-5.0); EOSINOPHILS % (AUTO) 1.1 % (0.0-8.0); HEMATOCRIT 53.5 % (42-54); LYMPHOCYTES % (AUTO) 19.9 % (21.0-51.0); MEAN CORPUSCULAR HEMOGLOBIN 31.2 pg (27.0-33.0); MEAN CORPUSCULAR VOLUME 89.2 fL (79-99); NEUTROPHILS % (AUTO) 70.3 % (40.0-77.0); PLATELET COUNT (AUTO) 156 K/uL (130-400); RED CELL DISTRIBUTION WIDTH 16.3 % (11.0-15.5); WHITE BLOOD COUNT (AUTO) 12.3 K/uL (4.8-10.8)
[2021-04-25 18:36] LABS: BACTERIA,URINE Rare /HPF (None Seen); SQUAMOUS EPITHELIAL CELL,UR Rare /HPF (0-2)
[2021-04-25 18:37] LABS: MUCUS,URINE Rare LPF (None Seen)
[2021-04-25 18:50] LABS: CREATININE 1.1 mg/dL (0.5-1.5); POTASSIUM 4.2 mmol/L (3.5-5.1)
[2021-04-25 19:02] LABS: ALBUMIN 3.9 g/dL (3.5-5.0); BILIRUBIN,TOTAL 0.3 mg/dL (0.2-1.0); TOTAL PROTEIN, SERUM 8.4 g/dL (6.0-8.3)
[2021-04-25] MEDS ORDERED: BISACODYL 10 MG SUPP.RECT RC STA (19:12)
[2021-04-25] MEDS ORDERED: LACTULOSE 20 GM/30 ML UDCUP PO STA ×2 (19:12→19:39)
[2021-04-25] MEDS ORDERED: POLY17PO4 PO (20:05)
[2021-04-25 20:19] VITALS: BP 140/82
== END 2021-04-25 20:15 | disposition home or self-care (01) ==
LOC: EDH 17:33
DX: R10.9 Unspecified abdominal pain (principal); K59.00 Constipation, unspecified; F20.9 Schizophrenia, unspecified; Z79.899 Other long term (current) drug therapy
CPT/HCPCS: 36415; 80053; 81001; 82150; 83690; 85025

== ENCOUNTER 2021-05-10 22:06 | Emergency (ER) | payer MEDICAID ==
[~2021-05-10] VITALS: Ht 177.8 cm; Wt 127.0 kg
[~2021-05-10 22:06] MED LIST changes: +POLY17PO4 PO
[2021-05-10 22:43] LABS: BASOPHILS % (AUTO) 0.8 % (0.0-5.0); EOSINOPHILS % (AUTO) 2.5 % (0.0-8.0); HEMATOCRIT 47.6 % (42-54); LYMPHOCYTES % (AUTO) 29.8 % (21.0-51.0); MEAN CORPUSCULAR HEMOGLOBIN 31.6 pg (27.0-33.0); MEAN CORPUSCULAR HGB CONC 34.9 g/dL (32.0-36.0); MEAN CORPUSCULAR VOLUME 90.5 fL (79-99); MONOCYTES % (AUTO) 7.3 % (3.0-13.0); NEUTROPHILS % (AUTO) 58.8 % (40.0-77.0); PLATELET COUNT (AUTO) 131 K/uL (130-400); RED BLOOD CELL COUNT(AUTO) 5.26 MIL/uL (4.50-6.20); RED CELL DISTRIBUTION WIDTH 15.2 % (11.0-15.5); WHITE BLOOD COUNT (AUTO) 10.6 K/uL (4.8-10.8)
[2021-05-10 22:46] LABS: APPEARANCE,URINE Clear (CLEAR); BILIRUBIN,URINE Negative (NEGATIVE); COLOR,URINE Yellow (YELLOW); GLUCOSE, URINE (UA) Negative (NEGATIVE); KETONES,URINE Negative (NEGATIVE); LEUKOCYTE ESTERASE ,URINE Negative (NEGATIVE); NITRATE,URINE Negative (NEGATIVE); OCCULT BLOOD,URINE Negative (NEGATIVE); PROTEIN,URINE Negative (NEGATIVE)
[2021-05-10 22:54] LABS: AMPHET/METH SCREEN,URINE NEGATIVE (NEGATIVE); BARBITURATE SCREEN, URINE NEGATIVE (NEGATIVE); BENZODIAZEPINES SCREEN,URINE NEGATIVE (NEGATIVE); CANNABINOID SCREEN,URINE NEGATIVE (NEGATIVE); COCAINE SCREEN,URINE POSITIVE (NEGATIVE); OPIATE SCREEN,URINE NEGATIVE (NEGATIVE); PHENCYCLIDINE SCREEN,URINE NEGATIVE (NEGATIVE)
[2021-05-10 23:02] LABS: CARBON DIOXIDE 30 mmol/L (21-32); CHLORIDE 101 mmol/L (101-111); CREATININE 0.9 mg/dL (0.5-1.5); GLOMERULAR FILTR. RATE CALC 93 mL/min (>60); GLUCOSE,RANDOM 94 mg/dL (70-105); POTASSIUM 4.3 mmol/L (3.5-5.1); SODIUM SERUM 135 mmol/L (136-145); UREA NITROGEN, BLOOD 12 mg/dL (7-18)
[2021-05-10 23:07] LABS: ACETAMINOPHEN < 1 mcg/mL (10-29); ALANINE AMINOTRANSFERASE 20 U/L (12-78); ALBUMIN 3.5 g/dL (3.5-5.0); ALCOHOL, BLOOD 5 mg/dL (0-10); ASPARTATE AMINOTRANSFERASE 13 U/L (10-37); BILIRUBIN,TOTAL 0.7 mg/dL (0.2-1.0); CREATINE KINASE, TOTAL 57 U/L (21-232); SALICYLATE 6.7 mg/dL (2.8-20.0); TOTAL PROTEIN, SERUM 7.2 g/dL (6.0-8.3)
[2021-05-11 01:02] VITALS: BP 145/78
== END 2021-05-11 01:16 | disposition home or self-care (01) ==
LOC: EDH 22:06
DX: F20.9 Schizophrenia, unspecified (principal); Z79.1 Long term (current) use of non-steroidal anti-inflammatories (NSAID)
CPT/HCPCS: 36415; 80053; 80305; 81003; 82550; 85025; 99283; G0481

== ENCOUNTER 2022-01-25 21:34 | Emergency (ER) | payer MEDICAID ==
[~2022-01-25] VITALS: Ht 177.8 cm; Wt 117.9 kg
[2022-01-25 22:00] LABS: BASOPHILS % (AUTO) 0.5 % (0.0-5.0); HEMATOCRIT 52.8 % (42-54); MEAN CORPUSCULAR HEMOGLOBIN 31.6 pg (27.0-33.0); MEAN CORPUSCULAR HGB CONC 35.4 g/dL (32.0-36.0); MEAN CORPUSCULAR VOLUME 89.3 fL (79-99); MONOCYTES % (AUTO) 8.3 % (3.0-13.0); NEUTROPHILS % (AUTO) 54.8 % (40.0-77.0); PLATELET COUNT (AUTO) 156 K/uL (130-400); RED BLOOD CELL COUNT(AUTO) 5.91 MIL/uL (4.50-6.20); RED CELL DISTRIBUTION WIDTH 13.2 % (11.0-15.5); WHITE BLOOD COUNT (AUTO) 9.1 K/uL (4.8-10.8)
[2022-01-25 22:03] LABS: APPEARANCE,URINE Clear (CLEAR); BILIRUBIN,URINE Negative (NEGATIVE); COLOR,URINE Yellow (YELLOW); GLUCOSE, URINE (UA) Negative (NEGATIVE); KETONES,URINE Trace mg/dL (NEGATIVE); LEUKOCYTE ESTERASE ,URINE Negative (NEGATIVE); NITRATE,URINE Negative (NEGATIVE); OCCULT BLOOD,URINE Negative (NEGATIVE); PROTEIN,URINE Negative (NEGATIVE)
[2022-01-25 22:09] LABS: AMPHET/METH SCREEN,URINE NEGATIVE (NEGATIVE); BARBITURATE SCREEN, URINE NEGATIVE (NEGATIVE); BENZODIAZEPINES SCREEN,URINE NEGATIVE (NEGATIVE); CANNABINOID SCREEN,URINE NEGATIVE (NEGATIVE); COCAINE SCREEN,URINE POSITIVE (NEGATIVE); OPIATE SCREEN,URINE NEGATIVE (NEGATIVE); PHENCYCLIDINE SCREEN,URINE NEGATIVE (NEGATIVE)
[2022-01-25 22:14] LABS: ALANINE AMINOTRANSFERASE 14 U/L (12-78); ALBUMIN 3.6 g/dL (3.5-5.0); ALCOHOL, BLOOD < 3 mg/dL (0-10); ASPARTATE AMINOTRANSFERASE 14 U/L (10-37); BILIRUBIN,TOTAL 0.4 mg/dL (0.2-1.0); CARBON DIOXIDE 29 mmol/L (21-32); CHLORIDE 102 mmol/L (101-111); CREATINE KINASE, TOTAL 48 U/L (21-232); GLOMERULAR FILTR. RATE CALC 82 mL/min (>60); GLUCOSE,RANDOM 97 mg/dL (70-105); POTASSIUM 4.2 mmol/L (3.5-5.1); SALICYLATE 7.7 mg/dL (2.8-20.0); SODIUM SERUM 137 mmol/L (136-145); TOTAL PROTEIN, SERUM 7.5 g/dL (6.0-8.3); UREA NITROGEN, BLOOD 10 mg/dL (7-18)
[2022-01-25 22:18] LABS: ACETAMINOPHEN < 1 mcg/mL (10-29)
[2022-01-26 00:27] VITALS: BP 128/72
== END 2022-01-26 00:42 | disposition home or self-care (01) ==
LOC: EDH 21:34
DX: F31.9 Bipolar disorder, unspecified (principal); F20.9 Schizophrenia, unspecified; Z20.822 Contact with and (suspected) exposure to COVID-19; Z79.899 Other long term (current) drug therapy; Z98.890 Other specified postprocedural states
CPT/HCPCS: 36415; 80053; 80305; 81003; 82550; 85025; 87635; 99283; C9803; G0481

== ENCOUNTER 2023-11-05 11:22 | Emergency (ER) | payer MEDICAID ==
[~2023-11-05] VITALS: Ht 177.8 cm; Wt 122.5 kg
[2023-11-05] MEDS ORDERED: SULF1TAB42 PO (11:43)
[2023-11-05 13:21] VITALS: BP 138/74; PULSE 92; RESP 18; O2SAT 97
== END 2023-11-05 13:26 | disposition home or self-care (01) ==
LOC: EDH 11:22
DX: L08.9 Local infection of the skin and subcutaneous tissue, unspecified (principal); F20.9 Schizophrenia, unspecified